=== PATIENT | male | born 1945 | race Hispanic/Latino ===

== ENCOUNTER 2017-11-04 14:46 | Emergency (ER) | payer OTHER ==
[2017-11-04 15:43] LABS: APPEARANCE,URINE Clear (CLEAR); BILIRUBIN,URINE Negative (NEGATIVE); COLOR,URINE Yellow (YELLOW); GLUCOSE, URINE (UA) Negative (NEGATIVE); KETONES,URINE Negative (NEGATIVE); LEUKOCYTE ESTERASE ,URINE Negative (NEGATIVE); NITRATE,URINE Negative (NEGATIVE); OCCULT BLOOD,URINE Moderate (NEGATIVE); PROTEIN,URINE POS 1+ (NEGATIVE); UROBILINOGEN,URINE 0.2 mg/dL (0.2-1.0)
[2017-11-04 15:55] LABS: BASOPHILS % (AUTO) 0.2 % (0.0-5.0); EOSINOPHILS % (AUTO) 0.2 % (0.0-8.0); MEAN CORPUSCULAR HEMOGLOBIN 32.8 pg (27.0-33.0); MEAN CORPUSCULAR HGB CONC 33.7 g/dL (32.0-36.0); MEAN CORPUSCULAR VOLUME 97.5 fL (79-99); NEUTROPHILS % (AUTO) 89.6 % (40.0-77.0); PLATELET COUNT (AUTO) 292 K/uL (130-400); RED CELL DISTRIBUTION WIDTH 12.4 % (11.0-15.5); WHITE BLOOD COUNT (AUTO) 19.6 K/uL (4.8-10.8)
[2017-11-04 16:07] LABS: CREATININE 1.4 mg/dL (0.5-1.5); POTASSIUM 3.6 mmol/L (3.5-5.1)
[2017-11-04 16:12] LABS: ALBUMIN 3.6 g/dL (3.5-5.0); BILIRUBIN,TOTAL 0.5 mg/dL (0.2-1.0); TOTAL PROTEIN, SERUM 8.1 g/dL (6.0-8.3)
[2017-11-04 16:14] LABS: BACTERIA,URINE Few /HPF (None Seen); MUCUS,URINE Few LPF (None Seen); SQUAMOUS EPITHELIAL CELL,UR Few /HPF (0-2)
[2017-11-04] MEDS ORDERED: LEVOFLOXACIN 500 MG TABLET ONE (19:15)
== END 2017-11-04 20:14 | disposition home or self-care (01) ==
LOC: EDH 14:46
DX: R50.9 Fever, unspecified (principal); R42 Dizziness and giddiness; R61 Generalized hyperhidrosis; M54.9 Dorsalgia, unspecified
CPT/HCPCS: 36415; 71045; 74176; 80053; 81001; 82550; 84484; 85025; 87088; 93005

== ENCOUNTER → 2020-09-23 | Outpatient (CLI) | payer OTHER ==
[~2020-09-23] MED LIST: IOHEXOL 350 MG/ML 100ML INFUS..BTL IV ONE
== END | disposition home or self-care (01) ==
LOC: RAH 07:34
PROVIDERS: ATTEND Internal Medicine Nephrology
DX: N26.1 Atrophy of kidney (terminal) (principal); I26.99 Other pulmonary embolism without acute cor pulmonale
CPT/HCPCS: 71275; Q9967

== ENCOUNTER → 2021-09-13 | Outpatient (CLI) | payer OTHER | END | disposition home or self-care (01) | LOC: SHCH 09:33 | PROVIDERS: ATTEND Internal Medicine Cardiovascular Disease | DX: I11.0 Hypertensive heart disease with heart failure (principal); I50.32 Chronic diastolic (congestive) heart failure; I08.3 Combined rheumatic disorders of mitral, aortic and tricuspid valves | CPT/HCPCS: 93306 ==

== ENCOUNTER 2023-03-28 05:42 | Day surgery (SDC) | payer OTHER ==
[2023-03-24 08:38] LABS: BASOPHILS # (AUTO) 0.04 K/uL (0.00-0.20); BASOPHILS % (AUTO) 0.5 % (0.0-5.0); EOSINOPHILS # (AUTO) 0.14 K/uL (0.00-0.70); EOSINOPHILS % (AUTO) 1.7 % (0.0-8.0); HEMATOCRIT 39.7 % (42-54); IMMATURE GRANULOCYTE ABSOLUTE 0.03 K/uL (0-1); LYMPHOCYTES # (AUTO) 2.3 K/uL (1.0-4.8); LYMPHOCYTES % (AUTO) 27.7 % (21.0-51.0); MEAN CORPUSCULAR HEMOGLOBIN 34.5 pg (27.0-33.0); MEAN CORPUSCULAR HGB CONC 32.5 g/dL (32.0-36.0); MEAN CORPUSCULAR VOLUME 106.1 fL (79-99); MONOCYTES # (AUTO) 0.6 K/uL (0.1-1.0); MONOCYTES % (AUTO) 6.6 % (3.0-13.0); NEUTROPHILS # (AUTO) 5.3 K/uL (1.8-7.7); NEUTROPHILS % (AUTO) 63.1 % (40.0-77.0); PLATELET COUNT (AUTO) 156 K/uL (130-400); RED BLOOD CELL COUNT(AUTO) 3.74 MIL/uL (4.50-6.20); RED CELL DISTRIBUTION WIDTH 11.9 % (11.0-15.5); WHITE BLOOD COUNT (AUTO) 8.3 K/uL (4.8-10.8)
[2023-03-24 08:51] LABS: INR 1.02 (0.85-1.15); PROTHROMBIN TIME 11.8 SEC (9.6-11.6)
[2023-03-24 08:52] LABS: PARTIAL THROMBOPLASTIN TIME 28.9 SEC (26.3-35.5)
[2023-03-24 09:03] VITALS: BP 129/72; PULSE 72; RESP 18
[2023-03-24 09:11] LABS: CREATININE 1.3 mg/dL (0.5-1.5)
[~2023-03-28] VITALS: Ht 180.3 cm; Wt 82.9 kg
[2023-03-28] VITALS (8 sets, daily range): BP systolic 126–152; BP diastolic 67–73; PULSE 47–54; RESP 11–18
[~2023-03-28 05:42] MED LIST changes: +AEC81 PO; +ALLO100T PO; +ATOR10TA69 PO; +FOLIC ACID PO; +FURO20TA4 PO; -IOHEXOL 350 MG/ML 100ML INFUS..BTL IV ONE; +ISOS30TA92 PO; +LISI20TA24 PO; +METO-408 PO; +SPIR25TA6 PO; +VITAMIN B12 PO; +VITAMIN D3 PO
[2023-03-28] MEDS ORDERED: IOPAMIDOL-370 100 ML VIAL IV ONE (05:43)
[2023-03-28] MEDS ORDERED: ISOVUE-370 50ML VIAL IV ONE (05:43)
[2023-03-28] MEDS ORDERED: 0.9%NACL 1000ML 1,000 ML IV ONE (07:04)
[2023-03-28] MEDS ORDERED: FENTANYL CITRATE PF 50 MCG/1 ML 2ML VIAL ONE (09:41)
[2023-03-28] MEDS ORDERED: LIDOCAINE HCL 400MG/20ML VIAL ONE (09:41)
[2023-03-28] MEDS ORDERED: HEPARIN 10,000 UNIT/10ML (1,000 UNIT/ML) VIAL ONE (09:42)
[2023-03-28] MEDS ORDERED: NITROGLYCERIN 50MG VIAL ONE (09:42)
[2023-03-28] MEDS ORDERED: MIDAZOLAM HCL 1 MG/ML 2ML VIAL ONE (09:42)
[2023-03-28] MEDS ORDERED: NICARDIPINE 25MG INJ IV ONE (09:42)
[2023-03-28] MEDS ORDERED: GLUCAGON 1MG KIT 1 MG ML IM PRN (11:30)
[2023-03-28] MEDS ORDERED: DEXTROSE 50%-WATER 50 ML DISP.SYRIN IV PRN (11:30)
[2023-03-28] MEDS ORDERED: 0.9%NACL 1000ML 1,000 ML IV SCH (11:30)
== END 2023-03-28 14:50 | disposition home or self-care (01) ==
LOC: DAH 05:42
PROVIDERS: ATTEND Internal Medicine Cardiovascular Disease
DX: I25.119 Atherosclerotic heart disease of native coronary artery with unspecified angina pectoris (principal); D47.2 Monoclonal gammopathy; I34.0 Nonrheumatic mitral (valve) insufficiency; I27.22 Pulmonary hypertension due to left heart disease; I13.0 Hypertensive heart and chronic kidney disease with heart failure and stage 1 through stage 4 chronic kidney disease, or unspecified chronic kidney disease; N18.30 Chronic kidney disease, stage 3 unspecified; I50.32 Chronic diastolic (congestive) heart failure; E78.5 Hyperlipidemia, unspecified; M10.9 Gout, unspecified; Z79.01 Long term (current) use of anticoagulants; Z79.899 Other long term (current) drug therapy; Z98.890 Other specified postprocedural states; Z82.49 Family history of ischemic heart disease and other diseases of the circulatory system; Z83.3 Family history of diabetes mellitus
CPT/HCPCS: 80048; 85025; 85610; 85730; 36415; 71045; 93005; 93458; 96360; 96375; C1769 ×2; C1894; A4649; Q9967 ×2; J3010; J3490 ×3; J7030; J1644; J2250; A4215; A4222; A4221; A4663; A4216; A4606; A4223 ×3; 99156; 99157

== ENCOUNTER → 2024-04-02 | Outpatient (CLI) | payer MEDICARE ==
[2024-04-02 12:09] LABS: BASOPHILS # (AUTO) 0.08 K/uL (0.00-0.20); BASOPHILS % (AUTO) 0.9 % (0.0-5.0); EOSINOPHILS # (AUTO) 0.23 K/uL (0.00-0.70); EOSINOPHILS % (AUTO) 2.7 % (0.0-8.0); HEMATOCRIT 42.3 % (42-54); IMMATURE GRANULOCYTE ABSOLUTE 0.04 K/uL (0-1); LYMPHOCYTES # (AUTO) 2.9 K/uL (1.0-4.8); LYMPHOCYTES % (AUTO) 33.8 % (21.0-51.0); MEAN CORPUSCULAR HEMOGLOBIN 35.1 pg (27.0-33.0); MEAN CORPUSCULAR HGB CONC 32.2 g/dL (32.0-36.0); MEAN CORPUSCULAR VOLUME 109.3 fL (79-99); MONOCYTES # (AUTO) 0.8 K/uL (0.1-1.0); MONOCYTES % (AUTO) 9.1 % (3.0-13.0); NEUTROPHILS # (AUTO) 4.5 K/uL (1.8-7.7); PLATELET COUNT (AUTO) 189 K/uL (130-400); RED BLOOD CELL COUNT(AUTO) 3.87 MIL/uL (4.50-6.20); RED CELL DISTRIBUTION WIDTH 12.2 % (11.0-15.5); WHITE BLOOD COUNT (AUTO) 8.5 K/uL (4.8-10.8)
[2024-04-02 12:34] LABS: CREATININE 1.6 mg/dL (0.5-1.3); POTASSIUM 4.4 mmol/L (3.5-5.1)
== END | disposition home or self-care (01) ==
LOC: LAB 08:59
PROVIDERS: ATTEND Internal Medicine Cardiovascular Disease
DX: I50.32 Chronic diastolic (congestive) heart failure (principal)
CPT/HCPCS: 36415; 80048; 83880; 85025

== ENCOUNTER → 2024-11-19 | Outpatient (CLI) | payer MEDICARE ==
[~2024-11-19] MED LIST changes: -AEC81 PO; +APIX5TAB PO; +CHOL100046 PO; +FOLI1 PO; -FOLIC ACID PO; +LISI10TA24 PO; -LISI20TA24 PO; -METO-408 PO; +PROP225C24 PO; -VITAMIN D3 PO
--- NOTE | 2024-11-19 19:28 | HMCSR ---
APPROVED REPORT EXAM: Two-dimensional and M-mode echocardiogram with Doppler and color Doppler. INDICATION ICD: I50.32 Chronic Diastolic (congestive) Heart Failure 2D Dimensions RVDd5.2 cmLVEF(%)31.6 (>50%)LVED Vol(simp.)114.0 mL IVSd1.4 (0.7-1.1cm)FS(%)15 %LVES Vol(simp.)98.0 mL LVDd5.5 (3.8-5.6cm)Ao Root(2D)2.7 (2.0-3.7cm)LVEF(%, simp.)32 % PWd1.3 (0.7-1.1cm)LVOT diam2.1 (1.8-2.4cm)LA ESV INDEX (BP)50.23 mL/m2 LVDs4.7 (2.5-4.0cm)IVC diam2.7 cm M-Mode Dimensions EPSS1.3 cm Aortic Valve AoV Vmax0.9 m/Ran Peak GR3.5 mmHgLVOT Vmax0.5 m/s AoV VTI0.2 mAo Mean GR2.0 mmHgLVOT VTI0.07 m LYLY (VMAX)1.7 cm2Al P1/2T342 msAVA (VTI) 1.7 cm2 Mitral Valve MV E Vmax53.0 cm/sDECEL Xwor568 msMR HLB822 cm2 MV A Vmax0.6 cm/sP 1/2 T55 ms E/A ratio88.3MVA (PHT)4.0 cm2 MR Max PG81 mmHgMR Mean PG48 mmHg Pulmonary Valve PV Vmax0.5 m/sPV VTI0.08 mPV Mean GR1 mmHg PV Peak GR1.0 mmHgPI End Hollie. Paul 1.2 cm/s Tricuspid Valve TR Vmax2.6 m/sRAP (EST) 15 xlReEXBT66.1 mmHg TR Peak GR27.1 mmHg Left Ventricle Left ventricular cavity size is normal. There is moderate concentric left ventricular hypertrophy. LV EF is 30-35%. Indeterminate diastolic dysfunction. Right Ventricle The right ventricle is severely dilated. Right ventricular systolic function is severely reduced. Atria The left atrium is severely dilated. The right atrium is severely dilated. Aortic Valve Aortic valve is trileaflet. The aortic valve is mildly thickened but opens well. Mild aortic regurgit ation. Calculated aortic valve area is 1.7 cm2 with maximum pressure gradient of 3.5 mmHg and mean pr essure gradient of 2.0 mmHg. Mitral Valve Mitral valve leaflets are sclerotic but open well. Mitral regurgitation is moderate to severe. There is no mitral valve stenosis. Tricuspid Valve The tricuspid valve leaflets appear normal. There is moderate to severe tricuspid regurgitation. Righ t ventricular systolic pressure is estimated at 40-50 mmHg. Pulmonic Valve The pulmonic valve leaflets appear normal. There is trace pulmonic valvular regurgitation. Great Vessels The aortic root is normal in size. IVC is dilated and collapses <50% with inspiration. Pericardium No pericardial effusion. Conclusion Left ventricular cavity size is normal. There is moderate concentric left ventricular hypertrophy. LVEF is 30-35%. Indeterminate diastolic dysfunction. The right ventricle is severely dilated. Right ventricular systolic function is severely reduced. The left atrium is severely dilated. The right atrium is severely dilated. Mild aortic regurgitation. Mitral regurgitation is moderate to severe. There is moderate to severe tricuspid regurgitation. Right ventricular systolic pressure is estimated at 40-50 mmHg. IVC is dilated and collapses <50% with inspiration. No pericardial effusion.
== END | disposition home or self-care (01) ==
LOC: SHCH 10:07
PROVIDERS: ATTEND Internal Medicine Cardiovascular Disease
DX: I08.3 Combined rheumatic disorders of mitral, aortic and tricuspid valves (principal); I50.32 Chronic diastolic (congestive) heart failure
CPT/HCPCS: 93306